=== PATIENT | male | born 2005 | race Two or more races ===

== ENCOUNTER 2023-12-17 14:19 | Emergency (ER) | payer BC ==
[2023-12-17 15:59] LABS: CORONAVIRUS COVID-19 NAA POSITIVE (NEGATIVE); INFLUENZA A NAA NEGATIVE (NEGATIVE); INFLUENZA B NAA NEGATIVE (NEGATIVE)
== END 2023-12-17 16:30 | disposition home or self-care (01) ==
LOC: MW.ED 14:19
DX: U07.1 COVID-19 (principal)
CPT/HCPCS: 0240U; 99283; 99284